=== PATIENT | female | born 1995 | race Caucasian/White ===

== ENCOUNTER 2017-03-08 09:25 | Emergency (ER) | payer OTHER ==
[~2017-03-08] VITALS: Ht 157.5 cm; Wt 56.7 kg
[~2017-03-08 09:25] MED LIST: ALBU0.0952 IH; LISD60CA PO; TRAZ-289 PO; VENL150C1 PO
[2017-03-08] MEDS ORDERED: NACL 0.9% 1,000 ML IV SCH (09:29)
[2017-03-08 09:30] VITALS: BP 144/89
[2017-03-08] MEDS ORDERED: LORazepam 2 MG/ML VIAL IVP ONE (09:30)
[2017-03-08] MEDS ORDERED: ONDANSETRON 4 MG/2 ML VIAL IVP ONE (09:30)
[2017-03-08] MEDS ORDERED: KETOROLAC 30 MG/ML VIAL IVP ONE (09:30)
[2017-03-08 09:42] LABS: BASOPHILS # (AUTO) 0.2 K/uL (0.00-0.22); BASOPHILS % (AUTO) 2.4 % (0.0-2.0); EOSINOPHILS # (AUTO) 0.1 K/uL (0-0.4); EOSINOPHILS % (AUTO) 0.7 % (0.0-4.0); HEMATOCRIT 40.9 % (36-48); HEMOGLOBIN 13.4 g/dL (12.0-16.0); LYMPHOCYTES # (AUTO) 2.6 K/uL (2.5-16.5); LYMPHOCYTES % (AUTO) 28.9 % (20.5-51.1); MEAN CORPUSCULAR HEMOGLOBIN 30 pg (27-31); MEAN CORPUSCULAR HGB CONC 33 g/dL (33-37); MEAN CORPUSCULAR VOLUME 90 fL (80-94); MONOCYTES # (AUTO) 0.3 K/uL (0.8-1.0); MONOCYTES % (AUTO) 3.3 % (1.7-9.3); NEUTROPHILS # (AUTO) 5.8 K/uL (1.8-7.7); NEUTROPHILS % (AUTO) 64.7 % (42.2-75.2); PLATELET COUNT (AUTO) 284 K/uL (140-450); RED BLOOD CELL COUNT(AUTO) 4.54 MIL/uL (4.20-5.40); RED CELL DISTRIBUTION WIDTH 12.9 % (11.6-13.7)
[2017-03-08 10:01] LABS: ALBUMIN 4.3 g/dL (3.4-5.0); ANION GAP 23.3 (8-16); CALCIUM 9.7 mg/dL (8.5-10.1); CARBON DIOXIDE 19.1 mmol/L (21-32); CREATININE 1.1 mg/dL (0.6-1.3); POTASSIUM 3.4 mmol/L (3.5-5.1); TOTAL BILIRUBIN 0.4 mg/dL (0.0-1.0); TOTAL PROTEIN, SERUM 8.1 g/dL (6.4-8.2)
[2017-03-08] MEDS ORDERED: NACL 0.9% 1,000 ML IV ONE (10:10)
[2017-03-08 11:39] VITALS: BP 117/66
== END 2017-03-08 11:39 | disposition home or self-care (01) ==
LOC: MED 09:26
DX: K29.20 Alcoholic gastritis without bleeding (principal); J45.909 Unspecified asthma, uncomplicated; F17.210 Nicotine dependence, cigarettes, uncomplicated; Z71.6 Tobacco abuse counseling
CPT/HCPCS: 36415; 80053; 83690; 84703; 85025; 96361; 96374; 96375; 99284; J1885; J2060; J2405; J7030